=== PATIENT | female | born 1970 | race Caucasian/White ===

== ENCOUNTER 2021-10-12 14:09 | Inpatient (IN) | payer SELFPAY ==
[2021-10-12 15:46] LABS: #Basophils 0.1 thou/uL (0.0-0.2); #Eosinphils 0.1 thou/uL (0.0-0.7); #Monocytes 0.7 thou/uL (0.11-0.59); #Neutrophils 6.9 thou/uL (1.40-6.50); %Basophils 0.7 % (0.0-1.0); %Eosinophils 1.1 % (0.0-10.0); %Lymphocytes 20.1 % (21.0-51.0); %Monocytes 7.2 % (0.0-10.0); Hemoglobin 13.9 g/dL (12.0-16.0); Mean Corpuscular HGB CONC 33.1 g/dL (32.0-36.0); Mean Corpuscular Hemoglobin 32.6 pg (27.0-31.0); Mean Corpuscular Volume 98.5 fL (78.0-98.0); Mean Platelet Volume 7.2 fL (7.4-10.4); Platelet Count 294 thou/uL (130-400); RBC Distribution Width 11.8 % (11.5-14.5); Red Blood Cell (RBC) Count 4.25 mill/uL (4.20-5.40); White Blood Cell (WBC) Count 9.7 thou/uL (4.8-10.8)
[2021-10-12 16:12] LABS: ALT (SGPT) 14 U/L (8-55); AST (SGOT) 17 U/L (5-34); Albumin 3.7 g/dL (3.5-5.0); Alkaline Phosphatase 196 U/L (40-110); Anion Gap 17 mmol/L (10-20); BUN (Urea Nitrogen) 7 mg/dL (9.8-20.1); Bilirubin, Total 0.4 mg/dL (0.2-1.2); Calc. Creatinine Clearance 0 mL/min (70-130); Calcium 9.9 mg/dL (7.8-10.44); Carbon Dioxide 20 mmol/L (22-29); Chloride 98 mmol/L (98-107); Globulin 3.8 g/dL (2.4-3.5); Glucose 439 mg/dL (70-105); Potassium 4.4 mmol/L (3.5-5.1); Protein, Total 7.5 g/dL (6.0-8.3); Sodium 131 mmol/L (136-145)
[2021-10-12 17:45] LABS: Bilirubin Negative (Negative); Blood, Urine Trace (Negative); Glucose, Urine (Dipstick) Negative (Negative); Ketone, Urine 15 mg/dL (Negative); Leukocyte Trace (Negative); Nitrite Positive (Negative); Protein, Urine (Dipstick) Trace mg/dL (Neg-Trace); Urobilinogen 0.2 mg/dL (Less than 2); pH, Urine 6.5 (5.0-9.0)
[2021-10-12 17:47] LABS: Clarity Hazy (Clear)
[2021-10-12 17:48] LABS: Specific Gravity, Urine 1.038 (1.002-1.036)
[2021-10-12 17:58] LABS: RBC/HPF 0-3 HPF (0-3); Squamous Epithelial 0-3 HPF (0-3); WBC/HPF Greater than 50 HPF (0-3)
[2021-10-12 17:59] LABS: Bacteria/HPF 4+ HPF (None Seen)
[2021-10-12] MEDS ORDERED: cefTRIAXone\\ROCEPHIN 1 GM VIAL ONE (18:41)
[2021-10-12] MEDS ORDERED: Acetaminophen 500 MG TAB ONE (19:29)
[2021-10-12 20:52] LABS: SARS-CoV-2 NAA Rapid Test Not Detected (NotDetected)
[2021-10-12] MEDS ORDERED: Ondansetron PF 4 MG/2 ML Vial IVP PRN (21:41)
[2021-10-12] MEDS ORDERED: Dextrose 5% in Water 1,000 ML IV PRN (21:45)
[2021-10-12] MEDS ORDERED: Dextrose 50% Abboject 50 ML SYRINGE SLOW IVP PRN (21:45)
[2021-10-12] MEDS ORDERED: Aspirin 325 MG TAB PO SCH (21:45)
[2021-10-12] MEDS ORDERED: hydrALAZINE 20 MG/ML VIAL SLOW IVP PRN (22:13)
[2021-10-12 23:26] VITALS: BMI 32.9
[2021-10-13] MEDS: HumaLOG 300 UNITS/3 ML VIAL SC PRN ×4 (06:43→22:01)
[2021-10-13 07:03] LABS: #Basophils 0.1 thou/uL (0.0-0.2); #Eosinphils 0.1 thou/uL (0.0-0.7); #Lymphocytes 1.6 thou/uL (1.20-3.40); #Monocytes 0.8 thou/uL (0.11-0.59); #Neutrophils 6.5 thou/uL (1.40-6.50); %Basophils 0.6 % (0.0-1.0); %Eosinophils 1.3 % (0.0-10.0); %Lymphocytes 17.9 % (21.0-51.0); %Monocytes 8.5 % (0.0-10.0); %Neutrophils 71.7 % (42.0-75.0); Hemoglobin 13.1 g/dL (12.0-16.0); Mean Corpuscular HGB CONC 33.9 g/dL (32.0-36.0); Mean Corpuscular Volume 97.5 fL (78.0-98.0); Mean Platelet Volume 7.2 fL (7.4-10.4); Platelet Count 286 thou/uL (130-400); RBC Distribution Width 11.9 % (11.5-14.5); Red Blood Cell (RBC) Count 3.97 mill/uL (4.20-5.40); White Blood Cell (WBC) Count 9.1 thou/uL (4.8-10.8)
[2021-10-13 07:25] LABS: Hemoglobin A1c 12.1 % (4.0-6.0)
[2021-10-13 07:26] LABS: Anion Gap 15 mmol/L (10-20); BUN (Urea Nitrogen) 7 mg/dL (9.8-20.1); Calc. Creatinine Clearance 114 mL/min (70-130); Calcium 9.7 mg/dL (7.8-10.44); Carbon Dioxide 22 mmol/L (22-29); Cardiac Risk 8.7 (Less than 4.5); Chloride 98 mmol/L (98-107); Cholesterol 157 mg/dl (< 200 Desired); Glucose 409 mg/dL (70-105); HDL Cholesterol 18 mg/dL (>60 Neg Risk); LDL Cholesterol, Calculated 72 mg/dL; Potassium 4.1 mmol/L (3.5-5.1); Sodium 131 mmol/L (136-145); Triglycerides 335 mg/dL (Less than 150)
[2021-10-13] MEDS: Clopidogrel Bisulfate 75 MG TAB PO SCH (11:12)
[2021-10-13] MEDS: Enoxaparin Sodium 40 MG/0.4 ML SYRINGE SC SCH (11:12)
[2021-10-13] MEDS: Aspirin 81 mg Enteric Coated Tablet PO SCH (11:12)
[2021-10-13] MEDS: Gabapentin 300 MG CAP PO SCH ×2 (16:38→22:00)
[2021-10-13] MEDS: cefTRIAXone\\ROCEPHIN 1 GM in Sodium Chloride 0.9% 100 ML IVPB SCH (18:23)
[2021-10-13] MEDS ORDERED: Lantus 1000 UNITS/10 ML VIAL SC SCH (21:00)
[2021-10-13] MEDS: Atorvastatin Calcium 40 MG TAB PO SCH (21:55)
[2021-10-13] MEDS: Cepastat Lozenges 1 LOZ PO PRN (21:58)
[2021-10-14] MEDS: Acetaminophen 325 MG TAB PO PRN ×3 (03:54→20:29)
[2021-10-14] MEDS: Cepastat Lozenges 1 LOZ PO PRN ×4 (03:55→21:40)
[2021-10-14] MEDS: HumaLOG 300 UNITS/3 ML VIAL SC PRN ×4 (06:19→21:38)
[2021-10-14 07:32] LABS: Hemoglobin 12.2 g/dL (12.0-16.0); Mean Corpuscular HGB CONC 32.5 g/dL (32.0-36.0); Mean Corpuscular Hemoglobin 31.5 pg (27.0-31.0); Mean Corpuscular Volume 97.1 fL (78.0-98.0); Mean Platelet Volume 6.9 fL (7.4-10.4); Platelet Count 285 thou/uL (130-400); RBC Distribution Width 11.9 % (11.5-14.5); Red Blood Cell (RBC) Count 3.88 mill/uL (4.20-5.40); White Blood Cell (WBC) Count 14.4 thou/uL (4.8-10.8)
[2021-10-14 07:43] LABS: Anion Gap 12 mmol/L (10-20); BUN (Urea Nitrogen) 9 mg/dL (9.8-20.1); Calc. Creatinine Clearance 105 mL/min (70-130); Calcium 9.3 mg/dL (7.8-10.44); Carbon Dioxide 20 mmol/L (22-29); Chloride 100 mmol/L (98-107); Glucose 338 mg/dL (70-105); Potassium 3.4 mmol/L (3.5-5.1); Sodium 129 mmol/L (136-145)
[2021-10-14] MEDS ORDERED: Clopidogrel Bisulfate 75 MG TAB PO SCH (09:00)
[2021-10-14] MEDS: Enoxaparin Sodium 40 MG/0.4 ML SYRINGE SC SCH (09:19)
[2021-10-14] MEDS: Gabapentin 300 MG CAP PO SCH ×3 (09:20→20:30)
[2021-10-14] MEDS: Clopidogrel Bisulfate 75 MG TAB PO SCH (09:21)
[2021-10-14] MEDS: Aspirin 81 mg Enteric Coated Tablet PO SCH (09:21)
[2021-10-14 09:30] LABS: Band 33 % (5-11); Eosinophils 1 % (0-10); Lymphocytes 13 % (21-51); MDiff Complete? YES; Metamyelocyte 1 % (0-0); Monocytes 2 % (0-10); Myelocyte 2 % (0-0); Neutrophil 48 % (42-75); Platelet Morphology Comment Appears Adequate; Polychromasia SLIGHT = 2-3 cells (100X) (0-2/hpf); Vacuoles SLIGHT
[2021-10-14] MEDS ORDERED: Iopamidol 370 76% 50 ML VIAL FS ONE (10:17)
[2021-10-14] MEDS ORDERED: Albuterol Sulfate 1.25 MG/3 ML NEB INH PRN (10:19)
[2021-10-14] MEDS ORDERED: Lantus 1000 UNITS/10 ML VIAL SC SCH (11:20)
[2021-10-14] MEDS ORDERED: Electrolyte Replacement Protocol 1 EACH FS SCH (12:15)
[2021-10-14] MEDS ORDERED: Potassium Chloride 20 MEQ TAB PO SCH (12:30)
[2021-10-14] MEDS ORDERED: Electrolyte Replacement Protocol FS PRN (12:30)
[2021-10-14] MEDS ORDERED: Sodium Chloride 0.9% 500 ML IV SCH (17:45)
[2021-10-14 17:49] LABS: Anion Gap 14 mmol/L (10-20); BUN (Urea Nitrogen) 10 mg/dL (9.8-20.1); Calc. Creatinine Clearance 108 mL/min (70-130); Calcium 9.4 mg/dL (7.8-10.44); Carbon Dioxide 19 mmol/L (22-29); Chloride 101 mmol/L (98-107); Glucose 251 mg/dL (70-105); Sodium 130 mmol/L (136-145)
[2021-10-14] MEDS: cefTRIAXone\\ROCEPHIN 1 GM in Sodium Chloride 0.9% 100 ML IVPB SCH (20:29)
[2021-10-14] MEDS: Atorvastatin Calcium 40 MG TAB PO SCH (20:30)
[2021-10-14] MEDS: GUAIFENESIN SF SOLN 200 MG/10 ML UDCUP PO PRN (21:39)
[2021-10-15] MEDS: Cepastat Lozenges 1 LOZ PO PRN ×4 (04:40→20:37)
[2021-10-15] MEDS: GUAIFENESIN SF SOLN 200 MG/10 ML UDCUP PO PRN (04:40)
[2021-10-15] MEDS: HumaLOG 300 UNITS/3 ML VIAL SC PRN ×4 (06:14→20:41)
[2021-10-15 07:11] LABS: #Eosinphils 0.2 thou/uL (0.0-0.7); #Lymphocytes 1.7 thou/uL (1.20-3.40); #Monocytes 0.7 thou/uL (0.11-0.59); #Neutrophils 8.6 thou/uL (1.40-6.50); %Basophils 0.1 % (0.0-1.0); %Eosinophils 1.7 % (0.0-10.0); %Lymphocytes 14.9 % (21.0-51.0); %Monocytes 6.3 % (0.0-10.0); Hemoglobin 11.8 g/dL (12.0-16.0); Mean Corpuscular HGB CONC 32.6 g/dL (32.0-36.0); Mean Corpuscular Hemoglobin 31.8 pg (27.0-31.0); Mean Corpuscular Volume 97.7 fL (78.0-98.0); Mean Platelet Volume 6.9 fL (7.4-10.4); Platelet Count 252 thou/uL (130-400); Red Blood Cell (RBC) Count 3.72 mill/uL (4.20-5.40); White Blood Cell (WBC) Count 11.2 thou/uL (4.8-10.8)
[2021-10-15 07:37] LABS: Anion Gap 11 mmol/L (10-20); BUN (Urea Nitrogen) 10 mg/dL (9.8-20.1); Calc. Creatinine Clearance 117 mL/min (70-130); Calcium 9.2 mg/dL (7.8-10.44); Carbon Dioxide 22 mmol/L (22-29); Chloride 101 mmol/L (98-107); Glucose 261 mg/dL (70-105); Potassium 3.9 mmol/L (3.5-5.1); Sodium 130 mmol/L (136-145)
[2021-10-15] MEDS ORDERED: Potassium Chloride 20 MEQ TAB PO SCH (08:00)
[2021-10-15] MEDS: Gabapentin 300 MG CAP PO SCH ×3 (09:47→20:36)
[2021-10-15] MEDS: Clopidogrel Bisulfate 75 MG TAB PO SCH (09:48)
[2021-10-15] MEDS: Aspirin 81 mg Enteric Coated Tablet PO SCH (09:49)
[2021-10-15] MEDS: Enoxaparin Sodium 40 MG/0.4 ML SYRINGE SC SCH (09:49)
[2021-10-15] MEDS: Sodium Chloride 0.9% 1,000 ML IV SCH (11:01)
[2021-10-15] MEDS ORDERED: Azithromycin 250 MG TAB PO SCH (12:00)
[2021-10-15] MEDS: cefTRIAXone\\ROCEPHIN 1 GM in Sodium Chloride 0.9% 100 ML IVPB SCH (20:36)
[2021-10-15] MEDS: Atorvastatin Calcium 40 MG TAB PO SCH (20:37)
[2021-10-15] MEDS ORDERED: Lantus 1000 UNITS/10 ML VIAL SC SCH (21:00)
[2021-10-16] MEDS: Acetaminophen 325 MG TAB PO PRN (00:05)
[2021-10-16] MEDS: Cepastat Lozenges 1 LOZ PO PRN ×3 (00:05→20:17)
[2021-10-16] MEDS: GUAIFENESIN SF SOLN 200 MG/10 ML UDCUP PO PRN ×2 (00:05→21:58)
[2021-10-16] MEDS: Sodium Chloride 0.9% 1,000 ML IV SCH (00:09)
[2021-10-16] MEDS: HumaLOG 300 UNITS/3 ML VIAL SC PRN ×5 (06:24→20:25)
[2021-10-16] MEDS: Gabapentin 300 MG CAP PO SCH ×3 (08:46→20:18)
[2021-10-16] MEDS: Azithromycin 250 MG TAB PO SCH (08:46)
[2021-10-16] MEDS: Enoxaparin Sodium 40 MG/0.4 ML SYRINGE SC SCH (08:46)
[2021-10-16] MEDS: Aspirin 81 mg Enteric Coated Tablet PO SCH (08:47)
[2021-10-16] MEDS: Clopidogrel Bisulfate 75 MG TAB PO SCH (08:47)
[2021-10-16] MEDS: Ciprofloxacin 500 MG TAB PO SCH (20:17)
[2021-10-16] MEDS: Atorvastatin Calcium 40 MG TAB PO SCH ×2 (20:19→21:00)
[2021-10-16] MEDS: HumuLIN 70/30 (300 UNITS/3 ML VIAL) SC SCH (21:43)
[2021-10-17] MEDS ORDERED: Lidocaine 1% MPF 2 ML VIAL ONE ×2 (06:00→07:02)
[2021-10-17] MEDS ORDERED: Sodium Chloride 0.9% 10 ML ONE ×2 (06:01→16:18)
[2021-10-17] MEDS ORDERED: Protamine Sulfate 50 MG/5 ML VIAL ONE (06:25)
[2021-10-17] MEDS ORDERED: Bupivacaine PF 0.5% 30 ML VIAL ONE (06:25)
[2021-10-17] MEDS ORDERED: Heparin 5,000 UNITS/ML VIAL ONE (06:25)
[2021-10-17] MEDS ORDERED: EPINEPHrine 1 MG/ML AMP ONE (06:25)
[2021-10-17] MEDS ORDERED: Fentanyl 250 MCG/5 ML VIAL ONE (06:37)
[2021-10-17] MEDS ORDERED: Midazolam HCl 2 mg/2 ml Vial ONE (06:37)
[2021-10-17] MEDS ORDERED: Heparin 10,000 UNITS/ 10 ML VIAL ONE (06:48)
[2021-10-17] MEDS ORDERED: Phenylephrine 10 MG/ML VIAL ONE (06:48)
[2021-10-17] MEDS ORDERED: Nitroglycerin 50 MG/250 ML BOT 250 ML ONE (06:48)
[2021-10-17] MEDS ORDERED: SUGAMMADEX SODIUM 200 MG/2 ML VIAL ONE (06:54)
[2021-10-17] MEDS ORDERED: Ondansetron PF 4 MG/2 ML Vial ONE (07:36)
[2021-10-17] MEDS ORDERED: Lidocaine 1% PF 5 ML VIAL ONE (07:36)
[2021-10-17] MEDS ORDERED: Rocuronium Bromide 10 MG/ML (10ML VIAL) ONE (07:36)
[2021-10-17] MEDS ORDERED: PHENYLEPHRINE-NS 100 MCG/ML 10 ML SYRINGE ONE (07:36)
[2021-10-17] MEDS ORDERED: ePHEDrine 50 MG/ML VIAL ONE (07:36)
[2021-10-17] MEDS ORDERED: diphenhydrAMINE 50 MG/ML VIAL ONE (07:36)
[2021-10-17] MEDS ORDERED: CIPROFLOXACIN LACTATE IVPB SCH ×2 (08:00)
[2021-10-17] MEDS ORDERED: D5W IVPB SCH ×2 (08:00)
[2021-10-17] MEDS ORDERED: ADMIXTURE FEE IVPB SCH (08:00)
[2021-10-17] MEDS ORDERED: traMADol HCl 50 MG TAB PO PRN (09:37)
[2021-10-17] MEDS ORDERED: Fentanyl 100 MCG/2 ML VIAL SLOW IVP PRN (09:37)
[2021-10-17] MEDS ORDERED: Promethazine HCl 25 MG/ML VIAL IM PRN (10:01)
[2021-10-17] MEDS ORDERED: Promethazine HCl 25 MG/ML VIAL IVPB PRN (10:01)
[2021-10-17] MEDS ORDERED: Ondansetron HCl/PF 4 MG/2 ML Vial IVP PRN (10:01)
[2021-10-17] MEDS ORDERED: Fentanyl 100 MCG/2 ML VIAL ONE ×2 (11:05→16:14)
[2021-10-17] MEDS: Gabapentin 300 MG CAP PO SCH ×3 (14:59→20:42)
[2021-10-17] MEDS: Azithromycin 250 MG TAB PO SCH (18:24)
[2021-10-17] MEDS: Aspirin 81 mg Enteric Coated Tablet PO SCH (18:24)
[2021-10-17] MEDS: Ciprofloxacin 500 MG TAB PO SCH ×2 (18:24→20:42)
[2021-10-17] MEDS: Clopidogrel Bisulfate 75 MG TAB PO SCH (18:25)
[2021-10-17] MEDS: Enoxaparin Sodium 40 MG/0.4 ML SYRINGE SC SCH (18:25)
[2021-10-17] MEDS: HumuLIN 70/30 (300 UNITS/3 ML VIAL) SC SCH ×2 (18:26→20:43)
[2021-10-17] MEDS: Atorvastatin Calcium 40 MG TAB PO SCH (20:42)
[2021-10-17] MEDS: HumaLOG 300 UNITS/3 ML VIAL SC PRN (20:44)
[2021-10-17] MEDS: Cepastat Lozenges 1 LOZ PO PRN (20:52)
[2021-10-18] MEDS: Cepastat Lozenges 1 LOZ PO PRN (00:20)
[2021-10-18] MEDS: HumaLOG 300 UNITS/3 ML VIAL SC PRN ×2 (06:35→11:46)
[2021-10-18] MEDS: Ciprofloxacin 500 MG TAB PO SCH (06:35)
[2021-10-18 08:02] VITALS: TEMP 97.6
[2021-10-18 08:41] LABS: #Eosinphils 0.1 thou/uL (0.0-0.7); #Monocytes 0.5 thou/uL (0.11-0.59); #Neutrophils 7.1 thou/uL (1.40-6.50); %Basophils 0.1 % (0.0-1.0); %Eosinophils 0.5 % (0.0-10.0); %Lymphocytes 20.4 % (21.0-51.0); %Monocytes 4.8 % (0.0-10.0); %Neutrophils 74.3 % (42.0-75.0); Hemoglobin 11.7 g/dL (12.0-16.0); Mean Corpuscular HGB CONC 32.2 g/dL (32.0-36.0); Mean Corpuscular Hemoglobin 31.8 pg (27.0-31.0); Mean Corpuscular Volume 98.9 fL (78.0-98.0); Mean Platelet Volume 6.9 fL (7.4-10.4); Platelet Count 412 thou/uL (130-400); Red Blood Cell (RBC) Count 3.69 mill/uL (4.20-5.40); White Blood Cell (WBC) Count 9.6 thou/uL (4.8-10.8)
[2021-10-18 08:59] LABS: Anion Gap 10 mmol/L (10-20); BUN (Urea Nitrogen) 11 mg/dL (9.8-20.1); Calc. Creatinine Clearance 118 mL/min (70-130); Calcium 9.2 mg/dL (7.8-10.44); Carbon Dioxide 21 mmol/L (22-29); Chloride 105 mmol/L (98-107); Glucose 343 mg/dL (70-105); Potassium 4.2 mmol/L (3.5-5.1); Sodium 132 mmol/L (136-145)
[2021-10-18] MEDS: Aspirin 81 mg Enteric Coated Tablet PO SCH (09:03)
[2021-10-18] MEDS: Clopidogrel Bisulfate 75 MG TAB PO SCH (09:03)
[2021-10-18] MEDS: Gabapentin 300 MG CAP PO SCH ×2 (09:03→15:33)
[2021-10-18] MEDS: Azithromycin 250 MG TAB PO SCH (09:03)
[2021-10-18] MEDS: Enoxaparin Sodium 40 MG/0.4 ML SYRINGE SC SCH (09:04)
[2021-10-18] MEDS: HumuLIN 70/30 (300 UNITS/3 ML VIAL) SC SCH (09:05)
[2021-10-18] MEDS: GUAIFENESIN SF SOLN 200 MG/10 ML UDCUP PO PRN (09:29)
[2021-10-18 15:01] VITALS: BP 131/71
== END 2021-10-18 16:00 | disposition home or self-care (01) | DRG 38 ==
LOC: ERS 14:09 → NEURO 19:32 → CCU 10-17 17:19
PROVIDERS: ADMIT Internal Medicine; ATTEND Internal Medicine
PROC: 03CJ0ZZ Extirpation of Matter from Left Common Carotid Artery, Open Approach (ICD-10-PCS; principal; 2021-10-17)
PROC: 03UJ0KZ Supplement Left Common Carotid Artery with Nonautologous Tissue Substitute, Open Approach (ICD-10-PCS; 2021-10-17)
DX: I63.512 Cerebral infarction due to unspecified occlusion or stenosis of left middle cerebral artery (principal); N39.0 Urinary tract infection, site not specified; I50.32 Chronic diastolic (congestive) heart failure; G81.91 Hemiplegia, unspecified affecting right dominant side; I47.2 Ventricular tachycardia; Z20.822 Contact with and (suspected) exposure to COVID-19; I11.0 Hypertensive heart disease with heart failure; L89.311 Pressure ulcer of right buttock, stage 1; I25.10 Atherosclerotic heart disease of native coronary artery without angina pectoris; J44.9 Chronic obstructive pulmonary disease, unspecified; E11.42 Type 2 diabetes mellitus with diabetic polyneuropathy; R29.708 NIHSS score 8; F17.210 Nicotine dependence, cigarettes, uncomplicated; E11.65 Type 2 diabetes mellitus with hyperglycemia; I48.91 Unspecified atrial fibrillation; F43.10 Post-traumatic stress disorder, unspecified; B96.1 Klebsiella pneumoniae [K. pneumoniae] as the cause of diseases classified elsewhere; E78.00 Pure hypercholesterolemia, unspecified; E78.5 Hyperlipidemia, unspecified; G35 Multiple sclerosis; I65.22 Occlusion and stenosis of left carotid artery; Z88.0 Allergy status to penicillin; Z95.1 Presence of aortocoronary bypass graft; Z88.2 Allergy status to sulfonamides; Z88.8 Allergy status to other drugs, medicaments and biological substances; Z88.7 Allergy status to serum and vaccine; Z88.1 Allergy status to other antibiotic agents; Z79.84 Long term (current) use of oral hypoglycemic drugs; Z79.01 Long term (current) use of anticoagulants; Z79.899 Other long term (current) drug therapy; Z99.3 Dependence on wheelchair
CPT/HCPCS: 36415; 36416; 70450; 70496; 70498; 71045; 80048; 80053; 80061; 81003; 81015; 83036; 83605; 83880; 84484; 85025; 87077; 87086; 87186; 87804; 88305; 93005; 93306; 93880; 96365; C1768; C1776; J0171; J0696; J1200; J1642; J1644; J1650; J1815; J2250; J2370; J2405; J2720; J3010; J3490; J7030; J7050; Q9967; S0020; U0002

== ENCOUNTER 2022-03-19 13:47 | Inpatient (IN) | payer SELFPAY ==
[2022-03-19 15:41] LABS: #Basophils 0.1 thou/uL (0.0-0.2); #Eosinphils 0.3 thou/uL (0.0-0.7); #Lymphocytes 2.3 thou/uL (1.20-3.40); #Monocytes 0.6 thou/uL (0.11-0.59); #Neutrophils 6.1 thou/uL (1.40-6.50); %Basophils 0.7 % (0.0-1.0); %Lymphocytes 24.6 % (21.0-51.0); %Monocytes 6.5 % (0.0-10.0); %Neutrophils 65.2 % (42.0-75.0); Hemoglobin 13.2 g/dL (12.0-16.0); Mean Corpuscular HGB CONC 33.1 g/dL (32.0-36.0); Mean Corpuscular Hemoglobin 32.6 pg (27.0-31.0); Mean Corpuscular Volume 98.4 fL (78.0-98.0); Mean Platelet Volume 8.3 fL (7.4-10.4); Platelet Count 276 thou/uL (130-400); RBC Distribution Width 12.3 % (11.5-14.5); Red Blood Cell (RBC) Count 4.05 mill/uL (4.20-5.40); White Blood Cell (WBC) Count 9.3 thou/uL (4.8-10.8)
[2022-03-19 16:03] LABS: ALT (SGPT) 10 U/L (8-55); AST (SGOT) 13 U/L (5-34); Alkaline Phosphatase 154 U/L (40-110); Anion Gap 13 mmol/L (10-20); BUN (Urea Nitrogen) 12 mg/dL (9.8-20.1); Bilirubin, Total 0.6 mg/dL (0.2-1.2); Calc. Creatinine Clearance 0 mL/min (70-130); Calcium 10.2 mg/dL (7.8-10.44); Carbon Dioxide 27 mmol/L (22-29); Chloride 103 mmol/L (98-107); Estimated GFR 91; Globulin 3.6 g/dL (2.4-3.5); Glucose 99 mg/dL (70-105); Protein, Total 7.6 g/dL (6.0-8.3); Sodium 139 mmol/L (136-145)
[2022-03-19] MEDS ORDERED: Dextrose 50% Abboject 50 ML SYRINGE SLOW IVP PRN (18:36)
[2022-03-19] MEDS ORDERED: Dextrose 5% in Water 1,000 ML IV PRN (18:36)
[2022-03-19] MEDS ORDERED: HumaLOG 300 UNITS/3 ML VIAL SC PRN ×2 (18:36)
[2022-03-19] MEDS ORDERED: Ondansetron ODT 4 MG TAB PO PRN (18:38)
[2022-03-19] MEDS ORDERED: Ondansetron PF 4 MG/2 ML Vial IVP PRN (18:38)
[2022-03-19] MEDS ORDERED: Acetaminophen 325 MG TAB PO PRN (18:38)
[2022-03-19] MEDS ORDERED: hydrALAZINE 20 MG/ML VIAL SLOW IVP PRN (18:40)
[2022-03-19] MEDS ORDERED: Electrolyte Replacement Protocol FS SCH (18:45)
[2022-03-19 18:46] VITALS: BMI 34.3
[2022-03-19] MEDS ORDERED: Nitroglycerin 0.4 MG TAB (25 Tab Bottle) SL PRN (18:54)
[2022-03-19 18:57] LABS: SARS-CoV-2 NAA Rapid Test Not Detected (NotDetected)
[2022-03-19 19:19] LABS: Troponin I 0.011 ng/mL (< 0.028)
[2022-03-19] MEDS ORDERED: Nicotine 7 MG PATCH TD PRN (20:00)
[2022-03-19] MEDS ORDERED: Acetaminophen 325 MG TAB ONE (20:01)
[2022-03-19] MEDS: Gabapentin 300 MG CAP PO SCH (21:12)
[2022-03-19] MEDS: Metoprolol Tartrate 25 MG TAB PO SCH (21:13)
[2022-03-19 23:04] LABS: Troponin I Less than 0.010 ng/mL (< 0.028)
[2022-03-19] MEDS: Nitroglycerin 2% Ointment 1 INCH/1 GM Packet TOP SCH (23:47)
[2022-03-20 03:53] LABS: #Eosinphils 0.4 thou/uL (0.0-0.7); #Lymphocytes 2.8 thou/uL (1.20-3.40); #Monocytes 0.7 thou/uL (0.11-0.59); #Neutrophils 5.1 thou/uL (1.40-6.50); %Basophils 0.3 % (0.0-1.0); %Eosinophils 4.6 % (0.0-10.0); %Lymphocytes 30.8 % (21.0-51.0); %Monocytes 7.4 % (0.0-10.0); %Neutrophils 56.8 % (42.0-75.0); Hemoglobin 12.7 g/dL (12.0-16.0); Mean Corpuscular HGB CONC 32.8 g/dL (32.0-36.0); Mean Corpuscular Hemoglobin 32.7 pg (27.0-31.0); Mean Corpuscular Volume 99.6 fL (78.0-98.0); Mean Platelet Volume 8.1 fL (7.4-10.4); Platelet Count 266 thou/uL (130-400); RBC Distribution Width 12.6 % (11.5-14.5); White Blood Cell (WBC) Count 8.9 thou/uL (4.8-10.8)
[2022-03-20 04:21] LABS: Anion Gap 11 mmol/L (10-20); BUN (Urea Nitrogen) 19 mg/dL (9.8-20.1); Calc. Creatinine Clearance 111 mL/min (70-130); Calcium 9.6 mg/dL (7.8-10.44); Carbon Dioxide 27 mmol/L (22-29); Chloride 105 mmol/L (98-107); Estimated GFR 77; Glucose 148 mg/dL (70-105); Magnesium 1.8 mg/dL (1.6-2.6); Potassium 3.9 mmol/L (3.5-5.1); Sodium 139 mmol/L (136-145)
[2022-03-20] MEDS: Nitroglycerin 2% Ointment 1 INCH/1 GM Packet TOP SCH ×3 (04:44→21:07)
[2022-03-20] MEDS ORDERED: Magnesium 2 GM/50 ML(in water) 2 GM in Premix Bag 1 BAG IVPB SCH (06:00)
[2022-03-20] MEDS: Gabapentin 300 MG CAP PO SCH ×3 (09:41→20:17)
[2022-03-20] MEDS: Aspirin 81 mg Enteric Coated Tablet PO SCH (09:41)
[2022-03-20] MEDS: Clopidogrel Bisulfate 75 MG TAB PO SCH (09:41)
[2022-03-20] MEDS: Metoprolol Tartrate 25 MG TAB PO SCH ×2 (09:42→20:26)
[2022-03-20] MEDS: metFORMIN 500 MG TAB PO SCH ×2 (09:42→16:08)
[2022-03-20] MEDS: Indomethacin 25 mg Capsule PO SCH (20:17)
[2022-03-21] MEDS: Nitroglycerin 2% Ointment 1 INCH/1 GM Packet TOP SCH ×2 (05:01→14:01)
[2022-03-21 05:08] LABS: #Eosinphils 0.3 thou/uL (0.0-0.7); #Monocytes 0.6 thou/uL (0.11-0.59); #Neutrophils 4.9 thou/uL (1.40-6.50); %Basophils 0.5 % (0.0-1.0); %Eosinophils 3.9 % (0.0-10.0); %Lymphocytes 25.1 % (21.0-51.0); %Monocytes 7.8 % (0.0-10.0); %Neutrophils 62.8 % (42.0-75.0); Hemoglobin 12.6 g/dL (12.0-16.0); Mean Corpuscular HGB CONC 32.6 g/dL (32.0-36.0); Mean Corpuscular Hemoglobin 32.6 pg (27.0-31.0); Mean Corpuscular Volume 99.8 fL (78.0-98.0); Mean Platelet Volume 8.2 fL (7.4-10.4); Platelet Count 261 thou/uL (130-400); RBC Distribution Width 12.5 % (11.5-14.5); Red Blood Cell (RBC) Count 3.86 mill/uL (4.20-5.40); White Blood Cell (WBC) Count 7.8 thou/uL (4.8-10.8)
[2022-03-21 05:24] LABS: Anion Gap 17 mmol/L (10-20); BUN (Urea Nitrogen) 19 mg/dL (9.8-20.1); Calc. Creatinine Clearance 114 mL/min (70-130); Calcium 9.5 mg/dL (7.8-10.44); Carbon Dioxide 22 mmol/L (22-29); Cardiac Risk 5.8 (Less than 4.5); Chloride 106 mmol/L (98-107); Cholesterol 216 mg/dl (< 200 Desired); Estimated GFR 80; Glucose 237 mg/dL (70-105); HDL Cholesterol 37 mg/dL (>60 Neg Risk); Potassium 4.6 mmol/L (3.5-5.1); Sodium 140 mmol/L (136-145)
[2022-03-21 06:10] LABS: Triglycerides 224 mg/dL (Less than 150)
[2022-03-21 06:15] LABS: LDL Cholesterol, Calculated 141 mg/dL
[2022-03-21] MEDS: Clopidogrel Bisulfate 75 MG TAB PO SCH (09:20)
[2022-03-21] MEDS: Aspirin 81 mg Enteric Coated Tablet PO SCH (09:20)
[2022-03-21] MEDS: Gabapentin 300 MG CAP PO SCH ×2 (09:20→14:40)
[2022-03-21] MEDS: Metoprolol Tartrate 25 MG TAB PO SCH (09:20)
[2022-03-21] MEDS: metFORMIN 500 MG TAB PO SCH ×2 (09:20→16:20)
[2022-03-21] MEDS: Indomethacin 25 mg Capsule PO SCH (09:20)
[2022-03-21 15:42] VITALS: BP 132/97; TEMP 97
== END 2022-03-21 18:00 | disposition home or self-care (01) | DRG 313 ==
LOC: ERS 13:47 → ERHOLD 17:12 → 2NO 23:20 → OBSVTOIN 03-20 15:25
PROVIDERS: ADMIT Family Medicine; ATTEND Hospitalist
DX: R07.89 Other chest pain (principal); I50.32 Chronic diastolic (congestive) heart failure; I25.10 Atherosclerotic heart disease of native coronary artery without angina pectoris; E11.42 Type 2 diabetes mellitus with diabetic polyneuropathy; E78.00 Pure hypercholesterolemia, unspecified; J44.9 Chronic obstructive pulmonary disease, unspecified; F41.9 Anxiety disorder, unspecified; F32.A Depression, unspecified; F43.10 Post-traumatic stress disorder, unspecified; F17.210 Nicotine dependence, cigarettes, uncomplicated; I48.0 Paroxysmal atrial fibrillation; Z20.822 Contact with and (suspected) exposure to COVID-19; I25.2 Old myocardial infarction; Z95.1 Presence of aortocoronary bypass graft; Z98.51 Tubal ligation status; Z88.2 Allergy status to sulfonamides; Z88.8 Allergy status to other drugs, medicaments and biological substances; Z88.0 Allergy status to penicillin; Z88.5 Allergy status to narcotic agent; Z79.82 Long term (current) use of aspirin; Z79.899 Other long term (current) drug therapy; Z79.84 Long term (current) use of oral hypoglycemic drugs; Z79.4 Long term (current) use of insulin; Z86.73 Personal history of transient ischemic attack (TIA), and cerebral infarction without residual deficits; Z90.49 Acquired absence of other specified parts of digestive tract; Z98.890 Other specified postprocedural states
CPT/HCPCS: 36415; 36416; 71045; 80048; 80053; 80061; 83735; 83880; 84443; 84484; 85025; 85379; 93005; 94760; 96374; G0378; J3475; U0002

== ENCOUNTER 2022-05-28 15:14 | Emergency (ER) | payer MEDICAID, SELFPAY | END 2022-05-28 18:16 | disposition home or self-care (01) | LOC: ERS 15:14 | DX: M54.50 Low back pain, unspecified (principal); M25.531 Pain in right wrist; M25.511 Pain in right shoulder; M25.551 Pain in right hip; M25.552 Pain in left hip; I10 Essential (primary) hypertension; I25.10 Atherosclerotic heart disease of native coronary artery without angina pectoris; E11.9 Type 2 diabetes mellitus without complications; E78.5 Hyperlipidemia, unspecified; F17.210 Nicotine dependence, cigarettes, uncomplicated; W05.0XXA Fall from non-moving wheelchair, initial encounter; Z86.73 Personal history of transient ischemic attack (TIA), and cerebral infarction without residual deficits; Z95.0 Presence of cardiac pacemaker; G51.0 Bell's palsy; Z79.82 Long term (current) use of aspirin; Z79.84 Long term (current) use of oral hypoglycemic drugs; Z79.4 Long term (current) use of insulin; Z79.899 Other long term (current) drug therapy | CPT/HCPCS: 70450; 72125; 72131 ==

== ENCOUNTER 2022-09-30 13:52 | Emergency (ER) | payer MEDICAID, OTHER ==
[2022-09-30 15:20] LABS: #Basophils 0.1 thou/uL (0.0-0.2); #Eosinphils 0.2 thou/uL (0.0-0.7); #Lymphocytes 3.1 thou/uL (1.20-3.40); #Monocytes 0.3 thou/uL (0.11-0.59); #Neutrophils 5.2 thou/uL (1.40-6.50); %Basophils 0.6 % (0.0-1.0); %Monocytes 3.8 % (0.0-10.0); %Neutrophils 58.6 % (42.0-75.0); Hemoglobin 13.6 g/dL (12.0-16.0); Mean Corpuscular HGB CONC 33.6 g/dL (32.0-36.0); Mean Corpuscular Hemoglobin 32.9 pg (27.0-31.0); Mean Corpuscular Volume 97.7 fl (78.0-98.0); Mean Platelet Volume 7.8 fL (7.4-10.4); Platelet Count 421 10x3/uL (130-400); RBC Distribution Width 11.7 % (11.5-14.5); Red Blood Cell (RBC) Count 4.13 mill/uL (4.20-5.40); White Blood Cell (WBC) Count 8.8 10x3/uL (4.8-10.8)
[2022-09-30 15:42] LABS: ALT (SGPT) 12 U/L (8-55); AST (SGOT) 13 U/L (5-34); Albumin 3.9 g/dL (3.5-5.0); Alkaline Phosphatase 151 U/L (40-110); Anion Gap 17 mmol/L (10-20); BUN (Urea Nitrogen) 14 mg/dL (9.8-20.1); Bilirubin, Total 0.5 mg/dL (0.2-1.2); Calc. Creatinine Clearance 0 mL/min (70-130); Calcium 10.3 mg/dL (7.8-10.44); Carbon Dioxide 22 mmol/L (22-29); Chloride 101 mmol/L (98-107); Estimated GFR 69; Globulin 4.1 g/dL (2.4-3.5); Glucose 236 mg/dL (70-105); Lipase 62 U/L (8-78); Potassium 4.1 mmol/L (3.5-5.1); Sodium 136 mmol/L (136-145)
[2022-09-30 17:05] LABS: Bacteria/HPF 4+ HPF (None Seen); Bilirubin Negative (Negative); Blood, Urine 1+ (Negative); Clarity Extra Turbid (Clear); Glucose, Urine (Dipstick) Normal (Negative); Ketone, Urine Trace mg/dL (Negative); Leukocyte 500 Leu/uL (Negative); Nitrite 2+ (Negative); Protein, Urine (Dipstick) 100 mg/dL (Neg-Trace); Specific Gravity, Urine 1.025 (1.002-1.036); Squamous Epithelial 0-3 HPF (0-3); Urobilinogen Normal mg/dL (Less than 2); WBC/HPF Greater than 50 HPF (0-3); pH, Urine 5.5 (5.0-9.0)
[2022-09-30] MEDS ORDERED: Ketorolac Tromethamine 30 MG/ML VIAL ONE (17:52)
[2022-09-30] MEDS ORDERED: Sodium Chloride 0.9% 100 ML ONE (17:52)
[2022-09-30] MEDS ORDERED: cefTRIAXone\\ROCEPHIN 1 GM VIAL ONE (17:52)
== END 2022-09-30 20:19 | disposition home or self-care (01) ==
LOC: ERS 13:52
DX: N12 Tubulo-interstitial nephritis, not specified as acute or chronic (principal); I10 Essential (primary) hypertension; E11.9 Type 2 diabetes mellitus without complications; E78.5 Hyperlipidemia, unspecified; F17.210 Nicotine dependence, cigarettes, uncomplicated; Z79.84 Long term (current) use of oral hypoglycemic drugs; Z79.4 Long term (current) use of insulin
CPT/HCPCS: 36415; 80053; 81003; 81015; 83690; 85025; 87040; 87077; 87086; 87186; 96361; 96365; 96375; J0696; J1885; J3490

== ENCOUNTER 2022-10-13 16:20 | Inpatient (IN) | payer OTHER ==
[~2022-10-13 16:20] MED LIST: Iopamidol-370 76% 500 ML 1 ML ONE
[2022-10-13 17:05] LABS: Bilirubin Negative (Negative); Blood, Urine Trace (Negative); Clarity Turbid (Clear); Glucose, Urine (Dipstick) 150 mg/dL (Negative); Ketone, Urine Negative (Negative); Leukocyte 500 Leu/uL (Negative); Nitrite Negative (Negative); Protein, Urine (Dipstick) 20 mg/dL (Neg-Trace); Specific Gravity, Urine 1.011 (1.002-1.036); Urobilinogen Normal mg/dL (Less than 2); WBC/HPF Greater than 50 HPF (0-3); pH, Urine 5.5 (5.0-9.0)
[2022-10-13 17:07] LABS: Bacteria/HPF 1+ HPF (None Seen)
[2022-10-13 17:44] LABS: #Eosinphils 0.4 thou/uL (0.0-0.7); #Lymphocytes 3.4 thou/uL (1.20-3.40); #Monocytes 0.4 thou/uL (0.11-0.59); #Neutrophils 4.1 thou/uL (1.40-6.50); %Basophils 0.6 % (0.0-1.0); %Eosinophils 4.7 % (0.0-10.0); %Lymphocytes 40.7 % (21.0-51.0); %Monocytes 5.2 % (0.0-10.0); %Neutrophils 48.8 % (42.0-75.0); Hemoglobin 13.3 g/dL (12.0-16.0); Mean Corpuscular HGB CONC 34.2 g/dL (32.0-36.0); Mean Corpuscular Hemoglobin 32.9 pg (27.0-31.0); Mean Corpuscular Volume 96.1 fl (78.0-98.0); Platelet Count 294 10x3/uL (130-400); RBC Distribution Width 11.8 % (11.5-14.5); Red Blood Cell (RBC) Count 4.05 mill/uL (4.20-5.40); White Blood Cell (WBC) Count 8.4 10x3/uL (4.8-10.8)
[2022-10-13 18:04] LABS: ALT (SGPT) 12 U/L (8-55); AST (SGOT) 13 U/L (5-34); Alkaline Phosphatase 152 U/L (40-110); Anion Gap 14 mmol/L (10-20); BUN (Urea Nitrogen) 14 mg/dL (9.8-20.1); Bilirubin, Total 0.3 mg/dL (0.2-1.2); Calc. Creatinine Clearance 0 mL/min (70-130); Calcium 10.1 mg/dL (7.8-10.44); Carbon Dioxide 21 mmol/L (22-29); Chloride 104 mmol/L (98-107); Estimated GFR 78; Globulin 3.9 g/dL (2.4-3.5); Glucose 270 mg/dL (70-105); Potassium 4.2 mmol/L (3.5-5.1); Protein, Total 7.9 g/dL (6.0-8.3); Sodium 135 mmol/L (136-145)
[2022-10-13] MEDS ORDERED: Morphine 4 MG/ML VIAL ONE (21:07)
[2022-10-13] MEDS ORDERED: Ondansetron PF 4 MG/2 ML Vial ONE (21:07)
[2022-10-13] MEDS ORDERED: cefTRIAXone\\ROCEPHIN 2 GM VIAL ONE (21:07)
[2022-10-13 21:21] LABS: Lactic Acid 1.3 mmol/L (0.5-2.2)
[2022-10-14] MEDS ORDERED: Ondansetron ODT 4 MG TAB SL PRN (00:45)
[2022-10-14] MEDS ORDERED: Ondansetron PF 4 MG/2 ML Vial IVP PRN (00:45)
[2022-10-14] MEDS ORDERED: Acetaminophen 325 MG TAB PO PRN (00:45)
[2022-10-14] MEDS ORDERED: Calcium Carbonate 500 MG ChewTAB PO PRN (00:46)
[2022-10-14] MEDS ORDERED: Senokot S 8.6-50 MG TAB PO PRN (00:46)
[2022-10-14] MEDS ORDERED: Dextrose 5% in Water 1,000 ML IV PRN (00:48)
[2022-10-14] MEDS ORDERED: Dextrose 50% Abboject 50 ML SYRINGE SLOW IVP PRN (00:48)
[2022-10-14 01:12] VITALS: BMI 38.6
[2022-10-14 01:49] LABS: SARS-CoV-2 NAA Rapid Test Not Detected (NotDetected)
[2022-10-14 06:02] LABS: Anion Gap 9 mmol/L (10-20); BUN (Urea Nitrogen) 16 mg/dL (9.8-20.1); Calc. Creatinine Clearance 115 mL/min (70-130); Calcium 9.7 mg/dL (7.8-10.44); Carbon Dioxide 25 mmol/L (22-29); Chloride 105 mmol/L (98-107); Estimated GFR 75; Glucose 161 mg/dL (70-105); Potassium 4.2 mmol/L (3.5-5.1); Sodium 135 mmol/L (136-145)
[2022-10-14] MEDS ORDERED: Ibuprofen 200 MG TAB PO PRN (06:25)
[2022-10-14] MEDS ORDERED: Acetaminophen 325 MG TAB ONE (06:45)
[2022-10-14] MEDS ORDERED: Ibuprofen 200 MG TAB ONE (06:45)
[2022-10-14] MEDS ORDERED: HumaLOG 300 UNITS/3 ML VIAL ONE (06:45)
[2022-10-14] MEDS: HumaLOG 300 UNITS/3 ML VIAL SC PRN (07:05)
[2022-10-14] MEDS ORDERED: Cefepime 1 GM VIAL ONE (09:29)
[2022-10-14] MEDS ORDERED: Famotidine 20 MG TAB ONE (09:29)
[2022-10-14] MEDS ORDERED: Clopidogrel Bisulfate 75 MG TAB ONE (09:29)
[2022-10-14] MEDS: metFORMIN 500 MG TAB PO SCH ×2 (09:41→16:51)
[2022-10-14] MEDS: Cefepime 1 GM in Sodium Chloride 0.9% 100 ML IVPB SCH ×2 (09:41→22:01)
[2022-10-14] MEDS: Famotidine 20 MG TAB PO SCH ×2 (09:42→21:48)
[2022-10-14] MEDS: Clopidogrel Bisulfate 75 MG TAB PO SCH (09:42)
[2022-10-14] MEDS: Gabapentin 300 MG CAP PO SCH ×3 (10:12→21:48)
[2022-10-14] MEDS ORDERED: Insulin Regular 300 UNITS/3 ML VIAL ONE (10:57)
[2022-10-14] MEDS: HumuLIN 70/30 (300 UNITS/3 ML VIAL) SC SCH (11:07)
[2022-10-14] MEDS: Atorvastatin Calcium 20 MG TAB PO SCH (21:47)
[2022-10-15] MEDS: HumuLIN 70/30 (300 UNITS/3 ML VIAL) SC SCH ×3 (01:15→20:42)
[2022-10-15] MEDS ORDERED: Electrolyte Replacement Protocol 1 EACH FS SCH (03:30)
[2022-10-15] MEDS ORDERED: Nitroglycerin 0.4 MG TAB (25 Tab Bottle) SL PRN (03:34)
[2022-10-15 05:03] LABS: Troponin I Less than 0.010 ng/mL (< 0.028)
[2022-10-15 05:12] LABS: ALT (SGPT) 14 U/L (8-55); AST (SGOT) 11 U/L (5-34); Albumin 3.6 g/dL (3.5-5.0); Alkaline Phosphatase 163 U/L (40-110); Anion Gap 16 mmol/L (10-20); BUN (Urea Nitrogen) 21 mg/dL (9.8-20.1); Bilirubin, Total 0.2 mg/dL (0.2-1.2); Calc. Creatinine Clearance 105 mL/min (70-130); Calcium 9.1 mg/dL (7.8-10.44); Carbon Dioxide 16 mmol/L (22-29); Chloride 105 mmol/L (98-107); Estimated GFR 67; Globulin 3.3 g/dL (2.4-3.5); Magnesium 1.6 mg/dL (1.6-2.6); Phosphorus 2.3 mg/dL (2.3-4.7); Potassium 4.3 mmol/L (3.5-5.1); Protein, Total 6.9 g/dL (6.0-8.3); Sodium 133 mmol/L (136-145)
[2022-10-15 05:14] LABS: Glucose 400 mg/dL (70-105)
[2022-10-15 06:09] LABS: #Eosinphils 0.3 thou/uL (0.0-0.7); #Lymphocytes 2.2 thou/uL (1.20-3.40); #Monocytes 0.7 thou/uL (0.11-0.59); #Neutrophils 6.5 thou/uL (1.40-6.50); %Basophils 0.4 % (0.0-1.0); %Eosinophils 2.8 % (0.0-10.0); %Lymphocytes 22.5 % (21.0-51.0); %Monocytes 7.6 % (0.0-10.0); %Neutrophils 66.7 % (42.0-75.0); Hemoglobin 13.4 g/dL (12.0-16.0); Mean Corpuscular HGB CONC 33.7 g/dL (32.0-36.0); Mean Corpuscular Hemoglobin 32.6 pg (27.0-31.0); Mean Platelet Volume 8.1 fL (7.4-10.4); Platelet Count 237 10x3/uL (130-400); RBC Distribution Width 11.9 % (11.5-14.5); Red Blood Cell (RBC) Count 4.11 mill/uL (4.20-5.40); White Blood Cell (WBC) Count 9.8 10x3/uL (4.8-10.8)
[2022-10-15] MEDS: HumaLOG 300 UNITS/3 ML VIAL SC PRN ×2 (06:39→11:29)
[2022-10-15] MEDS: metFORMIN 500 MG TAB PO SCH ×2 (07:33→16:19)
[2022-10-15] MEDS ORDERED: Magnesium 2 GM/50 ML(in water) 2 GM in Premix Bag 1 BAG IVPB SCH (08:00)
[2022-10-15] MEDS: Cefepime 1 GM in Sodium Chloride 0.9% 100 ML IVPB SCH ×2 (09:15→20:42)
[2022-10-15] MEDS: Gabapentin 300 MG CAP PO SCH ×3 (09:16→20:42)
[2022-10-15] MEDS: Clopidogrel Bisulfate 75 MG TAB PO SCH (09:16)
[2022-10-15] MEDS: Atorvastatin Calcium 20 MG TAB PO SCH (20:42)
[2022-10-16] MEDS: Cefepime 1 GM in Sodium Chloride 0.9% 100 ML IVPB SCH (08:28)
[2022-10-16] MEDS: HumuLIN 70/30 (300 UNITS/3 ML VIAL) SC SCH ×2 (08:29→21:47)
[2022-10-16] MEDS: Gabapentin 300 MG CAP PO SCH ×3 (08:29→20:37)
[2022-10-16] MEDS: Clopidogrel Bisulfate 75 MG TAB PO SCH (08:29)
[2022-10-16] MEDS: metFORMIN 500 MG TAB PO SCH ×2 (08:31→17:27)
[2022-10-16] MEDS: HumaLOG 300 UNITS/3 ML VIAL SC PRN ×2 (11:14→17:27)
[2022-10-16] MEDS ORDERED: Meropenem 1 GM in Sodium Chloride 0.9% 100 ML IVPB SCH (18:00)
[2022-10-16] MEDS: Atorvastatin Calcium 20 MG TAB PO SCH (20:36)
[2022-10-17] MEDS ORDERED: Meropenem 1 GM in Sodium Chloride 0.9% 100 ML IVPB SCH ×2 (02:00→10:00)
[2022-10-17] MEDS: HumaLOG 300 UNITS/3 ML VIAL SC PRN (05:46)
[2022-10-17] MEDS: Clopidogrel Bisulfate 75 MG TAB PO SCH (09:27)
[2022-10-17] MEDS: Gabapentin 300 MG CAP PO SCH (09:28)
[2022-10-17] MEDS: metFORMIN 500 MG TAB PO SCH (09:28)
[2022-10-17] MEDS: HumuLIN 70/30 (300 UNITS/3 ML VIAL) SC SCH (09:29)
[2022-10-17 09:44] VITALS: TEMP 98
[2022-10-17 09:48] VITALS: BP 173/78
== END 2022-10-17 14:26 | disposition home or self-care (01) | DRG 690 ==
LOC: ERS 16:20 → ERHOLD 22:35 → MSONC 10-14 13:19 → OBSVTOIN 10-15 09:10
PROVIDERS: ADMIT Student in an Organized Health Care Education/Training Program; ATTEND Internal Medicine
PROC: 02HV33Z Insertion of Infusion Device into Superior Vena Cava, Percutaneous Approach (ICD-10-PCS; principal; 2022-10-15)
PROC: B5181ZA Fluoroscopy of Superior Vena Cava using Low Osmolar Contrast, Guidance (ICD-10-PCS; 2022-10-15)
PROC: B548ZZA Ultrasonography of Superior Vena Cava, Guidance (ICD-10-PCS; 2022-10-15)
DX: N10 Acute pyelonephritis (principal); Z16.19 Resistance to other specified beta lactam antibiotics; E87.1 Hypo-osmolality and hyponatremia; N20.1 Calculus of ureter; K21.9 Gastro-esophageal reflux disease without esophagitis; I10 Essential (primary) hypertension; E78.5 Hyperlipidemia, unspecified; E11.65 Type 2 diabetes mellitus with hyperglycemia; I25.10 Atherosclerotic heart disease of native coronary artery without angina pectoris; F41.9 Anxiety disorder, unspecified; B96.1 Klebsiella pneumoniae [K. pneumoniae] as the cause of diseases classified elsewhere; Z20.822 Contact with and (suspected) exposure to COVID-19; Z88.0 Allergy status to penicillin; Z88.2 Allergy status to sulfonamides; Z88.8 Allergy status to other drugs, medicaments and biological substances; Z90.49 Acquired absence of other specified parts of digestive tract; Z98.890 Other specified postprocedural states; Z95.1 Presence of aortocoronary bypass graft; Z82.49 Family history of ischemic heart disease and other diseases of the circulatory system; Z91.018 Allergy to other foods; Z79.82 Long term (current) use of aspirin; Z79.899 Other long term (current) drug therapy; Z79.84 Long term (current) use of oral hypoglycemic drugs; Z95.5 Presence of coronary angioplasty implant and graft
CPT/HCPCS: 36415; 36416; 36569; 74177; 80048; 80053; 81003; 81015; 83605; 83735; 84100; 84484; 85025; 87040; 87077; 87086; 87186; 93005; 93010; 96365; 96375; 96376; C1751; G0378; J0692; J0696; J1650; J1815; J1956; J2185; J2270; J2405; J3475; J3490; Q9967; U0002

== ENCOUNTER 2022-12-03 14:08 | Emergency (ER) | payer OTHER ==
[2022-12-03 14:54] LABS: Bacteria/HPF 4+ HPF (None Seen); Bilirubin Negative (Negative); Blood, Urine 1+ (Negative); Clarity Turbid (Clear); Glucose, Urine (Dipstick) Greater than 1000 mg/dL (Negative); Ketone, Urine Negative (Negative); Leukocyte 500 Leu/uL (Negative); Nitrite 2+ (Negative); Protein, Urine (Dipstick) 20 mg/dL (Neg-Trace); Specific Gravity, Urine 1.024 (1.002-1.036); Urobilinogen Normal mg/dL (Less than 2); WBC/HPF Greater than 50 HPF (0-3)
[2022-12-03 16:06] LABS: #Eosinphils 0.4 thou/uL (0.0-0.7); #Lymphocytes 2.9 thou/uL (1.20-3.40); #Monocytes 0.5 thou/uL (0.11-0.59); #Neutrophils 4.9 thou/uL (1.40-6.50); %Basophils 0.5 % (0.0-1.0); %Eosinophils 4.5 % (0.0-10.0); %Lymphocytes 32.7 % (21.0-51.0); %Monocytes 5.9 % (0.0-10.0); %Neutrophils 56.4 % (42.0-75.0); Hemoglobin 13.3 g/dL (12.0-16.0); Mean Corpuscular HGB CONC 35.6 g/dL (32.0-36.0); Mean Corpuscular Hemoglobin 33.6 pg (27.0-31.0); Mean Corpuscular Volume 94.5 fl (78.0-98.0); Mean Platelet Volume 8.7 fL (7.4-10.4); Platelet Count 253 10x3/uL (130-400); Red Blood Cell (RBC) Count 3.94 mill/uL (4.20-5.40); White Blood Cell (WBC) Count 8.8 10x3/uL (4.8-10.8)
[2022-12-03 16:28] LABS: ALT (SGPT) 18 U/L (8-55); AST (SGOT) 17 U/L (5-34); Albumin 4.2 g/dL (3.5-5.0); Alkaline Phosphatase 193 U/L (40-110); Anion Gap 13 mmol/L (10-20); BUN (Urea Nitrogen) 14 mg/dL (9.8-20.1); Bilirubin, Total 0.2 mg/dL (0.2-1.2); Calc. Creatinine Clearance 0 mL/min (70-130); Calcium 10.3 mg/dL (7.8-10.44); Carbon Dioxide 23 mmol/L (22-29); Chloride 103 mmol/L (98-107); Estimated GFR 78; Globulin 3.9 g/dL (2.4-3.5); Glucose 267 mg/dL (70-105); Potassium 4.2 mmol/L (3.5-5.1); Protein, Total 8.1 g/dL (6.0-8.3); Sodium 135 mmol/L (136-145)
== END 2022-12-03 18:05 | disposition home or self-care (01) ==
LOC: ERS 14:08
DX: N39.0 Urinary tract infection, site not specified (principal); I25.10 Atherosclerotic heart disease of native coronary artery without angina pectoris; E11.9 Type 2 diabetes mellitus without complications; E78.5 Hyperlipidemia, unspecified; I10 Essential (primary) hypertension; F17.210 Nicotine dependence, cigarettes, uncomplicated
CPT/HCPCS: 80053; 81003; 81015; 85025; 87077; 87086; 87186; 99283

== ENCOUNTER 2022-12-17 23:10 | Inpatient (IN) | payer OTHER ==
[2022-12-18 00:09] LABS: #Basophils 0.1 thou/uL (0.0-0.2); #Eosinphils 0.4 thou/uL (0.0-0.7); #Lymphocytes 3.2 thou/uL (1.20-3.40); #Monocytes 0.5 thou/uL (0.11-0.59); %Basophils 0.9 % (0.0-1.0); %Eosinophils 5.2 % (0.0-10.0); %Lymphocytes 39.1 % (21.0-51.0); %Monocytes 6.2 % (0.0-10.0); %Neutrophils 48.6 % (42.0-75.0); Hemoglobin 13.2 g/dL (12.0-16.0); Mean Corpuscular HGB CONC 34.1 g/dL (32.0-36.0); Mean Corpuscular Hemoglobin 32.8 pg (27.0-31.0); Mean Corpuscular Volume 96.2 fl (78.0-98.0); Mean Platelet Volume 8.3 fL (7.4-10.4); Platelet Count 268 10x3/uL (130-400); RBC Distribution Width 12.1 % (11.5-14.5); Red Blood Cell (RBC) Count 4.03 mill/uL (4.20-5.40); White Blood Cell (WBC) Count 8.3 10x3/uL (4.8-10.8)
[2022-12-18 00:27] LABS: ALT (SGPT) 15 U/L (8-55); AST (SGOT) 16 U/L (5-34); Albumin 3.9 g/dL (3.5-5.0); Alkaline Phosphatase 169 U/L (40-110); Anion Gap 15 mmol/L (10-20); BUN (Urea Nitrogen) 12 mg/dL (9.8-20.1); Bilirubin, Total 0.3 mg/dL (0.2-1.2); Calc. Creatinine Clearance 0 mL/min (70-130); Calcium 10.1 mg/dL (7.8-10.44); Carbon Dioxide 23 mmol/L (22-29); Chloride 104 mmol/L (98-107); Estimated GFR 67; Globulin 3.8 g/dL (2.4-3.5); Glucose 209 mg/dL (70-105); Potassium 3.9 mmol/L (3.5-5.1); Protein, Total 7.7 g/dL (6.0-8.3); Sodium 138 mmol/L (136-145)
[2022-12-18 01:17] LABS: Bacteria/HPF 4+ HPF (None Seen); Bilirubin Negative (Negative); Blood, Urine Negative (Negative); Clarity Turbid (Clear); Glucose, Urine (Dipstick) 500 mg/dL (Negative); Ketone, Urine Negative (Negative); Leukocyte 500 Leu/uL (Negative); Nitrite 2+ (Negative); Protein, Urine (Dipstick) 30 mg/dL (Neg-Trace); Specific Gravity, Urine 1.024 (1.002-1.036); Squamous Epithelial 0-3 HPF (0-3); Urobilinogen Normal mg/dL (Less than 2); WBC/HPF Greater than 50 HPF (0-3)
[2022-12-18] MEDS ORDERED: Ketorolac Tromethamine 30 MG/ML VIAL ONE (01:25)
[2022-12-18] MEDS ORDERED: Acetaminophen 325 MG TAB PO PRN (03:06)
[2022-12-18] MEDS ORDERED: Ondansetron PF 4 MG/2 ML Vial IVP PRN (03:06)
[2022-12-18 03:24] LABS: #Basophils 0.1 thou/uL (0.0-0.2); #Eosinphils 0.4 thou/uL (0.0-0.7); #Lymphocytes 3.1 thou/uL (1.20-3.40); #Monocytes 0.5 thou/uL (0.11-0.59); #Neutrophils 3.9 thou/uL (1.40-6.50); %Basophils 0.9 % (0.0-1.0); %Eosinophils 5.3 % (0.0-10.0); %Lymphocytes 39.3 % (21.0-51.0); %Monocytes 6.3 % (0.0-10.0); %Neutrophils 48.2 % (42.0-75.0); Hemoglobin 12.7 g/dL (12.0-16.0); Mean Corpuscular HGB CONC 35.6 g/dL (32.0-36.0); Mean Corpuscular Hemoglobin 34.2 pg (27.0-31.0); Mean Corpuscular Volume 96.1 fl (78.0-98.0); Mean Platelet Volume 8.4 fL (7.4-10.4); Platelet Count 239 10x3/uL (130-400); RBC Distribution Width 12.2 % (11.5-14.5)
[2022-12-18] MEDS ORDERED: Dextrose 5% in Water 1,000 ML IV PRN (03:30)
[2022-12-18] MEDS ORDERED: HumaLOG 300 UNITS/3 ML VIAL SC PRN (03:30)
[2022-12-18] MEDS ORDERED: Dextrose 50% Abboject 50 ML SYRINGE SLOW IVP PRN (03:30)
[2022-12-18 03:54] LABS: Anion Gap 15 mmol/L (10-20); BUN (Urea Nitrogen) 12 mg/dL (9.8-20.1); Calc. Creatinine Clearance 0 mL/min (70-130); Carbon Dioxide 23 mmol/L (22-29); Chloride 104 mmol/L (98-107); Estimated GFR 69; Glucose 189 mg/dL (70-105); Potassium 3.9 mmol/L (3.5-5.1); Sodium 138 mmol/L (136-145)
[2022-12-18] MEDS ORDERED: Gentamicin 360 MG in Sodium Chloride 0.9% 100 ML IVPB SCH (04:00)
[2022-12-18] MEDS: HumaLOG 300 UNITS/3 ML VIAL SC PRN ×2 (05:21→12:07)
[2022-12-18 05:24] VITALS: BMI 38.0
[2022-12-18] MEDS ORDERED: Gabapentin 300 MG CAP PO PRN (11:26)
[2022-12-18] MEDS ORDERED: Fosfomycin 3 GM/Packet PO SCH (11:30)
[2022-12-18 12:43] LABS: Gentamicin, Random 6.3 ug/mL (See Comment)
[2022-12-18] MEDS: metFORMIN 500 MG TAB PO SCH (17:28)
[2022-12-18] MEDS: Insulin NPH Human Isophane 100 UNIT/ML (10 ML VIAL) SC SCH (20:34)
[2022-12-19] MEDS: Gentamicin 360 MG in Sodium Chloride 0.9% 100 ML IVPB SCH (03:52)
[2022-12-19 06:10] LABS: #Basophils 0.1 thou/uL (0.0-0.2); #Eosinphils 0.5 thou/uL (0.0-0.7); #Lymphocytes 2.8 thou/uL (1.20-3.40); #Monocytes 0.5 thou/uL (0.11-0.59); #Neutrophils 3.6 thou/uL (1.40-6.50); %Basophils 0.9 % (0.0-1.0); %Eosinophils 7.2 % (0.0-10.0); %Lymphocytes 37.5 % (21.0-51.0); %Monocytes 6.7 % (0.0-10.0); %Neutrophils 47.7 % (42.0-75.0); Hemoglobin 12.3 g/dL (12.0-16.0); Mean Corpuscular HGB CONC 34.7 g/dL (32.0-36.0); Mean Corpuscular Hemoglobin 33.7 pg (27.0-31.0); Mean Corpuscular Volume 97.3 fl (78.0-98.0); Mean Platelet Volume 8.6 fL (7.4-10.4); Platelet Count 247 10x3/uL (130-400); RBC Distribution Width 12.2 % (11.5-14.5); Red Blood Cell (RBC) Count 3.66 mill/uL (4.20-5.40); White Blood Cell (WBC) Count 7.6 10x3/uL (4.8-10.8)
[2022-12-19 06:29] LABS: Anion Gap 13 mmol/L (10-20); BUN (Urea Nitrogen) 17 mg/dL (9.8-20.1); Calc. Creatinine Clearance 122 mL/min (70-130); Calcium 10.1 mg/dL (7.8-10.44); Carbon Dioxide 26 mmol/L (22-29); Chloride 105 mmol/L (98-107); Estimated GFR 81; Glucose 214 mg/dL (70-105); Potassium 4.1 mmol/L (3.5-5.1); Sodium 140 mmol/L (136-145)
[2022-12-19] MEDS: HumaLOG 300 UNITS/3 ML VIAL SC PRN ×2 (06:31→11:47)
[2022-12-19] MEDS: Insulin NPH Human Isophane 100 UNIT/ML (10 ML VIAL) SC SCH ×2 (08:09→20:54)
[2022-12-19] MEDS: Clopidogrel Bisulfate 75 MG TAB PO SCH (08:09)
[2022-12-19] MEDS: Losartan 25 MG TAB PO SCH (08:09)
[2022-12-19] MEDS: metFORMIN 500 MG TAB PO SCH ×2 (08:09→17:02)
[2022-12-19] MEDS: Hydrochlorothiazide 25 MG TAB PO SCH (08:09)
[2022-12-19] MEDS: Miconazole 2% Vaginal Cream 45 GM TUBE TOP SCH (22:21)
[2022-12-20] MEDS: Gentamicin 360 MG in Sodium Chloride 0.9% 100 ML IVPB SCH (05:34)
[2022-12-20 05:52] LABS: #Eosinphils 0.5 thou/uL (0.0-0.7); #Lymphocytes 2.6 thou/uL (1.20-3.40); #Monocytes 0.5 thou/uL (0.11-0.59); #Neutrophils 3.7 thou/uL (1.40-6.50); %Basophils 0.5 % (0.0-1.0); %Eosinophils 7.3 % (0.0-10.0); %Lymphocytes 35.2 % (21.0-51.0); %Neutrophils 50.1 % (42.0-75.0); Hemoglobin 12.3 g/dL (12.0-16.0); Mean Corpuscular HGB CONC 33.7 g/dL (32.0-36.0); Mean Corpuscular Hemoglobin 32.7 pg (27.0-31.0); Mean Corpuscular Volume 96.9 fl (78.0-98.0); Mean Platelet Volume 8.5 fL (7.4-10.4); Platelet Count 242 10x3/uL (130-400); RBC Distribution Width 12.3 % (11.5-14.5); Red Blood Cell (RBC) Count 3.76 mill/uL (4.20-5.40); White Blood Cell (WBC) Count 7.3 10x3/uL (4.8-10.8)
[2022-12-20 06:13] LABS: Anion Gap 12 mmol/L (10-20); BUN (Urea Nitrogen) 12 mg/dL (9.8-20.1); Calc. Creatinine Clearance 129 mL/min (70-130); Calcium 10.7 mg/dL (7.8-10.44); Carbon Dioxide 26 mmol/L (22-29); Chloride 106 mmol/L (98-107); Estimated GFR 87; Glucose 143 mg/dL (70-105); Potassium 4.2 mmol/L (3.5-5.1); Sodium 140 mmol/L (136-145)
[2022-12-20] MEDS: metFORMIN 500 MG TAB PO SCH ×2 (09:05→16:56)
[2022-12-20] MEDS: Clopidogrel Bisulfate 75 MG TAB PO SCH (09:05)
[2022-12-20] MEDS: Hydrochlorothiazide 25 MG TAB PO SCH (09:06)
[2022-12-20] MEDS: Losartan 25 MG TAB PO SCH (09:06)
[2022-12-20] MEDS: Miconazole 2% Vaginal Cream 45 GM TUBE TOP SCH (09:07)
[2022-12-20] MEDS: Insulin NPH Human Isophane 100 UNIT/ML (10 ML VIAL) SC SCH (09:10)
[2022-12-20] MEDS ORDERED: Fluconazole 100 MG TAB PO SCH (12:00)
[2022-12-20 12:15] VITALS: TEMP 98.1
[2022-12-20 19:00] VITALS: BP 117/75
== END 2022-12-20 18:42 | disposition home or self-care (01) | DRG 690 ==
LOC: ERS 23:10 → T4-A 12-18 03:08 → OBSVTOIN 12-18 15:32
PROVIDERS: ADMIT Internal Medicine; ATTEND Internal Medicine
DX: N39.0 Urinary tract infection, site not specified (principal); Z16.23 Resistance to quinolones and fluoroquinolones; I25.10 Atherosclerotic heart disease of native coronary artery without angina pectoris; I10 Essential (primary) hypertension; E78.5 Hyperlipidemia, unspecified; F17.210 Nicotine dependence, cigarettes, uncomplicated; E11.65 Type 2 diabetes mellitus with hyperglycemia; N20.0 Calculus of kidney; B96.20 Unspecified Escherichia coli [E. coli] as the cause of diseases classified elsewhere; R33.9 Retention of urine, unspecified; Z86.73 Personal history of transient ischemic attack (TIA), and cerebral infarction without residual deficits; Z87.440 Personal history of urinary (tract) infections; Z95.1 Presence of aortocoronary bypass graft; Z88.1 Allergy status to other antibiotic agents; Z88.0 Allergy status to penicillin; Z88.2 Allergy status to sulfonamides; Z88.8 Allergy status to other drugs, medicaments and biological substances; Z91.018 Allergy to other foods; Z79.02 Long term (current) use of antithrombotics/antiplatelets; Z79.84 Long term (current) use of oral hypoglycemic drugs; Z79.899 Other long term (current) drug therapy; Z79.4 Long term (current) use of insulin; Z95.5 Presence of coronary angioplasty implant and graft; Z98.890 Other specified postprocedural states; Z90.49 Acquired absence of other specified parts of digestive tract; Z82.49 Family history of ischemic heart disease and other diseases of the circulatory system; Z83.49 Family history of other endocrine, nutritional and metabolic diseases
CPT/HCPCS: 36415; 36416; 74176; 80048; 80053; 80170; 81003; 81015; 83605; 85025; 87077; 87086; 87186; 96374; 96375; G0378; J1580; J1815; J1885; J3490